=== PATIENT | male | born 1995 | race Hispanic/Latino ===

== ENCOUNTER 2018-12-15 00:44 | Emergency (ER) | payer OTHER ==
[~2018-12-15] VITALS: Ht 162.6 cm; Wt 109.1 kg
[2018-12-15] MEDS ORDERED: FAMOTIDINE 20 MG/2 ML VIAL IV STA (01:13)
--- NOTE | 2018-12-15 02:26 | NUR ---
ultrasound in with pt.
--- NOTE | 2018-12-15 02:41 | NUR ---
ultrasound exam is complete
--- NOTE | 2018-12-15 03:02 | Diagnostic Imaging Report ---
EXAM: Right Upper Quadrant Ultrasound INDICATION: Right upper quadrant/epigastric pain COMPARISON: None. TECHNIQUE: Transverse and longitudinal images of the right upper abdomen were obtained. FINDINGS: Overlying bowel gas and body habitus partially limits evaluation. Liver: Size: 18.4 cm in the right midclavicular line, enlarged Appearance: Increased echogenicity, smooth contour Mass: No focal masses Gallbladder: Stones/Sludge: None Wall: 0.1 cm Appearance: No pericholecystic fluid or hydrops. Sonographic Santos's Sign: Negative Bile Ducts: Intrahepatic Ducts: No dilatation Extrahepatic Ducts: Common bile duct measures 0.2 cm, no dilatation Pancreas: Not well-visualized secondary to overlying bowel gas. Right Kidney: Size: 9.6 cm Echogenicity: Normal Parenchymal thickness: Normal Collecting system: No hydronephrosis Stones: None Cyst/Mass: None Vessels: Aorta: Visualized portions are normal Inferior Vena Cava: Visualized portions are normal Main Portal Vein: 0.9 cm, normal size with hepatopetal flow. Free Fluid: No ascites or pleural effusion IMPRESSION: Hepatic steatosis and hepatomegaly. Otherwise, unremarkable right upper quadrant ultrasound. Signed by: DR. Tony Miguel MD on 12/15/2018 2:58 AM
[2018-12-15 03:04] VITALS: BP 147/84
== END 2018-12-15 03:10 | disposition home or self-care (01) ==
LOC: FSED 00:44
DX: R10.11 Right upper quadrant pain (principal); R10.31 Right lower quadrant pain; R19.7 Diarrhea, unspecified; I10 Essential (primary) hypertension
CPT/HCPCS: 76705; 80053; 80076; 81003; 85025; 99284

== ENCOUNTER 2019-03-20 19:31 | Emergency (ER) | payer OTHER ==
[~2019-03-20] VITALS: Ht 165.1 cm; Wt 108.9 kg
--- OUTSIDE RECORDS SUMMARY | 2019-03-20 19:34 | XMS REPORT ---
Author Author [facility] Address Unknown Phone Unavailable Care Team Providers Care Financial Service Rep Name Role Phone Leena MICHAUD Unavailable Unavailable Problems This patient has no known problems. Allergies, Adverse Reactions, Alerts This patient has no known allergies or adverse reactions. Medications This patient has no known medications. Results Test Description Test Time Test Comments Text Results Atomic Results Result Comments [facility] 2018-12-15 02:56:00 [place] [address] Patient Name: NATHANIEL MEDINA III MR #: [id number] : 1995 Age/Sex: 23/M Req #: [id number] Adm Physician: Ordered by: BRUNO MICHAUD MD Report #: [id number] Location: [facility] Room/Bed: Procedure[facility] [id number] Exam Date: 12/15/18 Exam Time: 0220 REPORT STATUS: Signed EXAM: Right Upper Quadrant Ultrasound INDICATION: Right upper quadrant/epigastric pain COMPARISON: None. TECHNIQUE: Transverse and longitudinal images of the right upper abdomen were obtained. FINDINGS: Overlying bowel gas and body habitus partially limits evaluation. Liver: Size: 18.4 cm in the right midclavicular line, enlarged Appearance: Increased echogenicity, smooth contour Mass: No focal masses Gallbladder: Stones/Sludge: None Wall: 0.1 cm Appearance: No pericholecystic fluid or hydrops. Sonographic Santos's Sign: Negative Bile Ducts: Intrahepatic Ducts: No dilatation Extrahepatic Ducts: Common bile duct measures 0.2 cm, no dilatation Pancreas: Not well-visualized secondary to overlying bowel gas. Right Kidney: Size: 9.6 cm Echogenicity: Normal Parenchymal thickness: Normal Collecting system: No hydronephrosis Stones: None Cyst/Mass: None Vessels: Aorta: Visualized portions are normal Inferior Vena Cava: Visualized portions are normal Main Portal Vein: 0.9 cm, normal size with hepatopetal flow. Free Fluid: No ascites or pleural effusion IMPRESSION: Hepatic steatosis and hepatomegaly. Otherwise, unremarkable right upper quadrant ultrasound. Signed by: DR. Tony Rosenbaum MD on 12/15/2018 2:58 AM Dictated By: TONY ROSENBAUM MD 7 Transcribed By: BOBBI on 12/15/18257 COPY TO: BRUNO MICHAUD MD
[2019-03-20] MEDS ORDERED: DONNATAL/LIDOCAINE/MAALOX 30 ML SUSP PO ONE (20:00)
[2019-03-20] MEDS ORDERED: LIDOCAINE VISC 2% SOLN 15 ML UDC ONE (20:00)
[2019-03-20] MEDS ORDERED: MAGNESIUM/ALUMINUM/SIMETHICONE 30 ML UDC ONE (20:01)
[2019-03-20 20:54] VITALS: BP 132/89
== END 2019-03-20 20:55 | disposition home or self-care (01) ==
LOC: ER 19:31
DX: K21.0 Gastro-esophageal reflux disease with esophagitis (principal); I10 Essential (primary) hypertension; E78.5 Hyperlipidemia, unspecified; E66.9 Obesity, unspecified; Z68.39 Body mass index [BMI] 39.0-39.9, adult; Z82.49 Family history of ischemic heart disease and other diseases of the circulatory system; Z87.891 Personal history of nicotine dependence
CPT/HCPCS: 93005; 99283

== ENCOUNTER 2019-04-29 23:12 | Emergency (ER) | payer OTHER ==
[~2019-04-29] VITALS: Ht 165.1 cm; Wt 108.9 kg
[2019-04-29 23:43] VITALS: BP 142/86
== END 2019-04-29 23:59 | disposition home or self-care (01) ==
LOC: ER 23:12
DX: R06.09 Other forms of dyspnea (principal); R05 Cough; I10 Essential (primary) hypertension; K21.9 Gastro-esophageal reflux disease without esophagitis
CPT/HCPCS: 93005; 99282

== ENCOUNTER 2019-10-04 09:56 | Emergency (ER) | payer OTHER ==
[~2019-10-04] VITALS: Ht 165.1 cm; Wt 108.9 kg
[2019-10-04] MEDS ORDERED: MORPHINE SULFATE INJ 4 MG/ML INJ 1ML IV STA (10:17)
[2019-10-04] MEDS ORDERED: SODIUM CHLORIDE 0.9% 1000ML 1,000 ML IV STA (10:17)
[2019-10-04] MEDS ORDERED: DIATRIZOATE MEGL/DIATRIZOA SOD 30 ML BTL PO ONE (10:32)
[2019-10-04 11:25] LABS: BASOPHILS % 0.3 % (0.0-1.0); EOSINOPHILS # (AUTO) 0.1 (0.0-0.4); EOSINOPHILS % 0.5 % (0.0-6.0); HEMATOCRIT 48.8 % (38.2-49.6); HEMOGLOBIN 16.7 g/dL (14.0-18.0); LYMPHOCYTES # (AUTO) 2.1 (1.0-3.2); LYMPHOCYTES % 19.2 % (18.0-39.1); MEAN CORPUSCULAR HEMOGLOBIN 30.2 pg (28-32); MEAN CORPUSCULAR HGB CONC 34.2 g/dL (31-35); MEAN CORPUSCULAR VOLUME 88.2 fL (81-99); MONOCYTES # (AUTO) 0.7 (0.2-0.8); MONOCYTES % 6.6 % (4.4-11.3); NEUTROPHILS # (AUTO) 7.9 (2.1-6.9); NEUTROPHILS % 73.1 % (38.7-80.0); PLATELET COUNT 179 x10e3/uL (140-360); RED BLOOD COUNT 5.53 x10e6/uL (4.3-5.7); RED CELL DISTRIBUTION WIDTH 11.9 % (11.7-14.4)
[2019-10-04 11:38] LABS: CLARITY,URINE HAZY (CLEAR); COLOR,URINE YELLOW (YELLOW); KETONES,URINE 1+ (NEGATIVE); LEUKOCYTE ESTERASE ,URINE NEGATIVE (NEGATIVE); NITRITE,URINE NEGATIVE (NEGATIVE); PROTEIN,URINE DIPSTICK NEGATIVE (NEGATIVE)
[2019-10-04 11:39] LABS: BACTERIA,URINE MODERATE /HPF; BILIRUBIN,URINE SMALL (NEGATIVE); EPITHELIAL CELLS,URINE MODERATE /LPF; URINE UROBILINOGEN 0.2 mg/dL (0.2 - 1); WBC,URINE (MAN) 0-5 /HPF (0-5)
[2019-10-04 11:40] LABS: MUCUS,URINE FEW (RARE)
[2019-10-04 11:55] LABS: ALANINE AMINOTRANSFERASE 68 IU/L (0-55); ALBUMIN 4.2 g/dL (3.5-5.0); ALBUMIN/GLOBULIN RATIO 1.2 (0.8-2.0); ALKALINE PHOSPHATASE 88 IU/L (40-150); ANION GAP 13.8 mmol/L (8-16); BLOOD UREA NITROGEN 11 mg/dL (7-26); BUN/CREATININE RATIO 12 (6-25); CALCIUM 9.5 mg/dL (8.4-10.2); CARBON DIOXIDE 25 mmol/L (22-29); CHLORIDE 102 mmol/L (98-107); CREATININE, SERUM 0.91 mg/dL (0.72-1.25); EST GLOMERULAR FILTRATION RATE > 60 ML/MIN (60-); GLUCOSE 87 mg/dL (74-118); POTASSIUM 3.8 mmol/L (3.5-5.1); SODIUM 137 mmol/L (136-145)
--- NOTE | 2019-10-04 13:04 | Diagnostic Imaging Report ---
EXAM: CT Abdomen and Pelvis WITH intravenous contrast INDICATION: Abdominal pain COMPARISON: None. TECHNIQUE: Abdomen and pelvis were scanned utilizing a multidetector helical scanner from the lung base to the pubic symphysis after administration of IV contrast. Coronal and sagittal reformations were obtained. Routine protocol was performed. Scan was performed during portal venous phase. IV CONTRAST: 100mL of Isovue 370 ORAL CONTRAST: Water RADIATION DOSE: Total DLP: 801.2 mGy*cm Dose modulation, iterative reconstruction, and/or weight based adjustment of the mA/kV was utilized to reduce the radiation dose to as low as reasonably achievable. FINDINGS: LOWER THORAX: Normal. HEPATOBILIARY: No focal hepatic lesions. No biliary ductal dilatation. The gallbladder appears unremarkable. SPLEEN: No splenomegaly. PANCREAS: No focal masses or ductal dilatation. ADRENALS: No adrenal nodules. KIDNEYS/URETERS: No hydronephrosis, stones, or solid mass lesions. PELVIC ORGANS/BLADDER: Unremarkable. PERITONEUM / RETROPERITONEUM: No free air or fluid. LYMPH NODES: No lymphadenopathy. VESSELS: Unremarkable. GI TRACT: Diverticulosis with wall thickening and pericolonic fat stranding involving a segment of sigmoid colon. No free air. No focal drainable diverticular abscess. BONES AND SOFT TISSUES: Unremarkable. IMPRESSION: Acute uncomplicated sigmoid diverticulitis. No drainable diverticular abscess. Signed by: Silvia Perez MD on 10/04/2019 1:00 PM
[2019-10-04] MEDS ORDERED: CIPRO500 MG PO (13:21)
[2019-10-04] MEDS ORDERED: FLAGYL500 MG PO (13:21)
[2019-10-04 13:45] VITALS: BP 123/57
[2019-10-04] MEDS ORDERED: SODIUM CHLORIDE 0.9% 50ML 50 ML ONE (14:20)
[2019-10-04] MEDS ORDERED: IOPAMIDOL 370 MG/ML 200 ML INFUS..BTL INJ ONE (14:21)
== END 2019-10-04 13:40 | disposition home or self-care (01) ==
LOC: ER 09:56
DX: R10.30 Lower abdominal pain, unspecified (principal); R11.0 Nausea; K59.00 Constipation, unspecified; K57.32 Diverticulitis of large intestine without perforation or abscess without bleeding; E66.9 Obesity, unspecified
CPT/HCPCS: 36415; 74177; 80053; 81001; 82270; 85025; 87086; 99284; J2270; J7030; Q9967

== ENCOUNTER 2023-04-22 22:23 | Emergency (ER) | payer OTHER ==
[~2023-04-22] VITALS: Ht 165.1 cm; Wt 108.9 kg
[~2023-04-22 22:23] MED LIST: CIPRO500 MG PO; FLAGYL500 MG PO
[2023-04-22] MEDS ORDERED: LIDOCAINE HCL 1% LOCAL INJ 20 ML VIAL INJ STA (22:34)
[2023-04-22] MEDS ORDERED: TETANUS/DIPHTHERIA TOX ADULT 0.5 ML SYR ONE (22:41)
[2023-04-22] MEDS ORDERED: TETANUS/DIPHTHERIA TOX ADULT 0.5 ML SYR IM ONE (22:45)
[2023-04-22] MEDS ORDERED: CEPHALEXIN500 MG PO (23:05)
[2023-04-22 23:12] VITALS: BP 141/89; PULSE 89; RESP 16; TEMP 98.9; O2SAT 100
== END 2023-04-22 23:10 | disposition home or self-care (01) ==
LOC: ER 22:30
DX: S81.811A Laceration without foreign body, right lower leg, initial encounter (principal); W26.0XXA Contact with knife, initial encounter; Y92.89 Other specified places as the place of occurrence of the external cause; I10 Essential (primary) hypertension; E78.5 Hyperlipidemia, unspecified; K21.9 Gastro-esophageal reflux disease without esophagitis
CPT/HCPCS: 90471; 90714; 99283

== ENCOUNTER 2023-04-30 15:54 | Emergency (ER) | payer SELFPAY ==
[~2023-04-30] VITALS: Ht 165.1 cm; Wt 108.9 kg
[~2023-04-30 15:54] MED LIST changes: +CEPHALEXIN500 MG PO
[2023-04-30 16:22] VITALS: O2SAT 99
== END 2023-04-30 17:39 | disposition home or self-care (01) ==
LOC: ER 16:04
DX: Z48.02 Encounter for removal of sutures (principal)
CPT/HCPCS: 99283